=== PATIENT | male | born 1935 | race Caucasian/White ===

== ENCOUNTER 2016-05-18 17:45 | Emergency (ER) | payer MEDICARE ==
[~2016-05-18] VITALS: Ht 162.6 cm; Wt 70.3 kg
[2016-05-18 17:45] VITALS: BP 155/93; PULSE 82; RESP 20; TEMP 98.3; O2SAT 97
--- NOTE | 2016-05-18 17:51 | NUR ---
Patient to ER bed 7 to gown for evaluation. Side rails up. Report given to Yanelis NAJERA.
[2016-05-18] MEDS ORDERED: DIPH-TET-PERTUS Vaccine 0.5 ML VIAL (ADACEL) IM ONE (18:00)
--- NOTE | 2016-05-18 18:00 | NUR ---
Patient to ER stating that he stood up and hit the top of his head on a metal bar. Patient has a 6cm laceration to top left frontoparietal area, bleeding controlles, denies KO, denies N/V, denies blurry vision. AAOx4, unlabored breathing, no signs of acute distress.
--- NOTE | 2016-05-18 18:02 | NUR ---
ER MD Fisher at bedside evaluating the patient
--- NOTE | 2016-05-18 18:38 | NUR ---
Patient has a 5 cm laceration to right side fronto-parietal. Dr. Fisher applied janice sterile technique. Edges well approximated. Site cleansed with NS & iodine. Dressing of alireza & bacitracin applied to site. No bleeding noted. Pt tolerated well.
[2016-05-18] MEDS ORDERED: ACETAMINOPHEN 500 MG TABLET PO ONE (19:00)
[2016-05-18] MEDS ORDERED: BACITRACIN 1 GM OINT TP ONE (19:00)
[2016-05-18 19:12] VITALS: BP 131/83; PULSE 74; RESP 17; TEMP 98.1; O2SAT 98
--- NOTE | 2016-05-18 19:12 | NUR ---
Patient given written and verbal discharge instructions and verbalizes understanding. ER MD Fisher discussed with patient the results and treatment provided. Patient in stable condition. ID arm band removed. Patient educated on pain management and to follow up with PMD. Pain Scale 0/10. Opportunity for questions provided and answered.
== END 2016-05-18 19:12 | disposition home or self-care (01) ==
LOC: SED 17:45
DX: S01.81XA Laceration without foreign body of other part of head, initial encounter (principal); W22.8XXA Striking against or struck by other objects, initial encounter; Y93.89 Activity, other specified; Y99.8 Other external cause status; Y92.89 Other specified places as the place of occurrence of the external cause
CPT/HCPCS: 90715; 99283